=== PATIENT | male | born 1975 | race Caucasian/White ===

== ENCOUNTER → 2018-05-11 | Outpatient (CLI) | payer OTHER ==
--- NOTE | 2018-05-11 10:30 | PCVCIMAG ---
APPROVED REPORT Study performed: 05/11/2018 08:23:50 EXAM: Comprehensive 2D, Doppler, and color-flow Echocardiogram Patient Location: Echo lab Room #: 2Status: routine BSA: 2.24 HR: 85 bpmBP: 134/78 mmHg Rhythm: NSR Other Information Study Quality: Adequate Risk Factors: Cardiac Risk Factors: HTN, Hyperlipidemia Indications Abnormal ECG Chest Pain Hypertension/HDD 2D Dimensions IVSd: 10.58 (7-11mm)LVOT Diam: 23.12 (18-24mm) LVDd: 49.59 mm PWd: 8.20 (7-11mm)Ascending Ao: 32.63 (22-36mm) LVDs: 30.69 (25-40mm) Left Atrium: 34.92 (27-40mm) Aortic Root: 24.48 mm LV Single Plane 4CH: 59.63 % LV Single Plane 2CH: 56.32 % Biplane EF: 57.3 % Volumes Left Atrial Volume (Systole) Single Plane 4CH: 78.99 mLSingle Plane 2CH: 110.17 mL Biplane LA Volume: 98.00 mLLA ESV Index: 44.00 mL/m2 Aortic Valve AoV Peak Tex.: 1.21 m/s AO Peak Gr.: 5.83 mmHgLVOT Max P.90 mmHg LVOT Max V: 0.99 m/s SOFY Vmax: 3.43 cm2 Mitral Valve E/A Ratio: 1.2 MV Decel. Time: 208.19 ms MV E Max Tex.: 0.82 m/s MV A Tex.: 0.66 m/s IVRT: 86.51 ms TDI E/Lateral E': 9.11E/Medial E': 9.11 Medial E' Tex.: 0.09 m/s Lateral E' Tex.: 0.09 m/s Pulmonary Valve PV Peak Tex.: 0.88 m/sPV Peak Gr.: 3.10 mmHg Pulmonary Vein P Vein S: 0.38 m/sP Vein A: 0.28 m/s P Vein D: 0.47 m/sP Vein A Dur.: 96.9 msec P Vein S/D Ratio: 0.81 Tricuspid Valve TV Vmax: 0.62 m/s Left Ventricle The left ventricle is normal size. There is normal LV segmental wall motion. Borderline concentric left ventricular hypertrophy. Left ventricular systolic function is normal. The left ventricular ejection fraction is within the normal range. LVEF is 55-60%. The left ventricular diastolic function is normal. Right Ventricle The right ventricle is normal size. The right ventricular systolic function is normal. Atria The left atrium size is normal. The right atrium size is normal. Aortic Valve Aortic valve is trileaflet. The aortic valve is normal in structure. No aortic regurgitation is present. There is no aortic valvular stenosis. Mitral Valve The mitral valve is normal in structure. There is no mitral valve regurgitation noted. No evidence of mitral valve stenosis. Tricuspid Valve The tricuspid valve is normal in structure. There is no tricuspid valve regurgitation noted. Pulmonic Valve The pulmonary valve is normal in structure. There is no pulmonic valvular regurgitation. Great Vessels The aortic root is normal in size. The ascending aorta is normal in size. Aortic arch is normal in caliber. IVC is normal in size and collapses >50% with inspiration. Pericardium There is no pericardial effusion. There is no pleural effusion. <Conclusion> The left ventricle is normal size. Left ventricular systolic function is normal. The right ventricle is normal size. The left atrium size is normal. The right atrium size is normal. The aortic valve is normal in structure. The mitral valve is normal in structure. There is no tricuspid valve regurgitation noted.
--- NOTE | 2018-05-11 10:33 | PCVCIMAG ---
APPROVED REPORT Study performed: 05/11/2018 08:59:44 Exam: Stress Echocardiogram Indication: Chest pain , Hypertension Patient Location: Echo lab Stress Nurse: Ally Pichardo RN Room #: 2 Status: routine Ht: 5 ft 10 in HR: 85 bpm BP: 134/78 mmHg Rhythm: NSR Medical History Medical History: HTN, Hyperlipidemia Cardiac Risk Factors: Hyperlipidemia, HTN Previous Cardiac Procedures: none Pretest Chest Pain Characteristics: No chest pain Exercise History: Physically active Procedure The patient underwent an Exercise Stress Test using the Doug Protocol. Blood pressure, heart rate, and EKG were monitored. An Echocardiogram was performed by dialysis biomed technician in four stages in quad fashion. At peak stress, four selected images were obtained and placed side by side with resting images for comparison. Stress Test Details Stress Test: Exercise stress testing was performed using a Doug protocol. HR Resting HR: 85 bpmMax Heart Rate (APMHR): 176 bpm Max HR Achieved: 184 bpmTarget HR (85% APMHR): 149 bpm % of APMHR: 104 Recovery HR: 130 bpm HR response to stress: Normal HR response to stress BP Resting BP: 134/78 mmHg Max BP: 188/80 mmHg Recovery BP: 124/62 mmHg BP response to stress: Normal blood pressure response to stress. ECG Resting ECG: Sinus Rhythm Stress ECG: Sinus Rhythm ST Change: Non-ischemic Arrhythmia: Rare PVC Recovery ECG: Sinus Rhythm Recovery ST Change: Non-ischemic Recovery Arrhythmia: None Clinical Reason for Termination: Maximal effort Stress Symptoms: fatigue Exercise duration: 11 min 01 sec Highest Stage Achieved: Stage 4: 4.2 mph at 16% grade. Exercise capacity: 13.7 METs Overall Exercise Capacity for Age: Good Scale: Active Angina Score: None No complications. Stress ECG Conclusion The patient exercised according to the DOUG protocol for 11:01 mins; achieving a work level of 13.70 METS. The resting heart rate of 85 bpm anton to a maximum heart rate of 184 bpm. This value represent 104% of the maximal, age-predicted heart rate. The resting blood pressure of 134/78 mmHg, anton to a maximum blood pressure of 188/80 mmHg. The exercise test was stopped due to fatigue. Pre-Stress Echo The resting Echocardiogram showed normal left ventricular contractility with an estimated Ejection Fraction of about 55-60%. Normal wall motion in all segments on baseline images. Post-Stress Echo The stress Echocardiogram showed normal left ventricular contractility with an estimated Ejection Fraction of about 65-70%. Normal augmentation of wall motion in all segments on post stress images. Clinical No clinical or ECG evidence for ischemia. Conclusion Clinical Response: Non-ischemic Exercise Capacity: Above average Stress ECG Response: Non-ischemic Stress Echo Images: Non-ischemic No clinical, EKG or echocardiographic evidence for ischemia. No prior study available for comparison. <Conclusion> No clinical, EKG or echocardiographic evidence for ischemia.
== END | disposition home or self-care (01) ==
LOC: PCVCIMAG 08:35
PROVIDERS: ATTEND Internal Medicine Cardiovascular Disease
DX: R07.9 Chest pain, unspecified (principal); R94.31 Abnormal electrocardiogram [ECG] [EKG]; I10 Essential (primary) hypertension
CPT/HCPCS: 93306; 93351